=== PATIENT | female | born 1995 | race Caucasian/White ===

== ENCOUNTER 2024-12-18 15:34 | Emergency (ER) | payer BC, OTHER ==
[2024-12-18] MEDS ORDERED: diphenhydrAMINE 50 MG/ML VIAL ONE (16:30)
[2024-12-18] MEDS ORDERED: Metoclopramide HCl 10 MG (2 mL) VIAL ONE (16:30)
[2024-12-18 18:00] LABS: #Basophils Less than 0.03 10x3/uL (0.0-0.2); #Eosinophils Less than 0.03 10x3/uL (0.0-0.5); #Monocytes 1.15 10x3/uL (0.0-1.1); #Neutrophils 6.14 10x3/uL (1.5-8.4); %Basophils 0.1 % (0.0-2.0); %Lymphocytes 15.4 % (18.0-47.0); %Monocytes 13.2 % (0.0-10.0); %Neutrophils 70.5 % (40.0-75.0); Hematocrit 33.4 % (34.9-44.5); Hemoglobin 11.7 g/dL (12.0-15.5); Mean Corpuscular Volume 88.4 fL (81.6-98.3); Mean Platelet Volume 11.7 fL (7.4-10.4); Platelet Count 166 10x3/uL (150-450); RBC Distribution Width 12.8 % (11.5-14.5); Red Blood Cell (RBC) Count 3.78 10x6/uL (3.90-5.03); White Blood Cell (WBC) Count 8.71 10x3/uL (3.5-10.5)
[2024-12-18 18:16] LABS: Bilirubin Neg (Negative); Blood, Urine Negative (Negative); Glucose, Urine (Dipstick) Normal (Negative); Ketone, Urine Negative (Negative); Leukocyte Negative (Negative); Nitrite Negative (Negative); Protein, Urine (Dipstick) 15 mg/dl (Neg-Trace); Urobilinogen Normal mg/dL (Less than 2)
[2024-12-18 18:17] LABS: Clarity Hazy (Clear)
[2024-12-18 18:23] LABS: Bacteria/HPF Rare-Few HPF (None Seen); CAUTI Indications for Culture Pelvic or flank pain; RBC/HPF None Seen HPF (0-3); Squamous Epithelial 0-3 HPF (0-3); Urine Culture Reflex No No; WBC/HPF 0-3 HPF (0-3)
[2024-12-18 18:29] LABS: ALT (SGPT) Less than 7 U/L (Less than 34); AST (SGOT) 16 U/L (11-34); Albumin 3.3 g/dL (3.1-4.5); Alkaline Phosphatase 41 U/L (40-110); Anion Gap 16 mmol/L (10-20); BUN (Urea Nitrogen) 5 mg/dL (7.0-18.7); Bilirubin, Total 0.2 mg/dL (0.3-1.2); Calc. Creatinine Clearance 0 mL/min (70-130); Calcium 8.4 mg/dL (7.8-10.44); Carbon Dioxide 17 mmol/L (22-29); Chloride 107 mmol/L (98-107); Estimated GFR 121; Globulin 2.8 g/dL (2.4-3.5); Glucose 117 mg/dL (70-105); Lipase 20 U/L (8-78); Protein, Total 6.1 g/dL (6.0-8.3); Sodium 136 mmol/L (136-145)
[2024-12-18 18:32] LABS: Troponin I Less than 0.010 ng/mL (< 0.028)
[2024-12-18] MEDS ORDERED: Acetaminophen 325 MG TAB ONE (18:58)
== END 2024-12-18 19:28 | disposition home or self-care (01) ==
LOC: CSHERS 15:34
DX: O98.512 Other viral diseases complicating pregnancy, second trimester (principal); J10.1 Influenza due to other identified influenza virus with other respiratory manifestations; Z3A.15 15 weeks gestation of pregnancy
CPT/HCPCS: 71045; 76815; 80053; 81001; 83690; 84484; 85025; 87428; 93005; J1200; J2765

== ENCOUNTER 2025-06-10 13:26 | Inpatient (IN) | payer OTHER ==
[2025-06-10 18:42] VITALS: BMI 29.8
[2025-06-10] MEDS ORDERED: Carboprost 250 MCG/ML AMP IM PRN (18:58)
[2025-06-10] MEDS ORDERED: Methylergonovine 0.2 MG/ML VIAL IM PRN (18:58)
[2025-06-10] MEDS ORDERED: Lidocaine 1% (PF) 30 ML VIAL SC PRN (18:58)
[2025-06-10] MEDS ORDERED: hydrALAZINE 20 MG/ML VIAL SLOW IVP PRN (18:58)
[2025-06-10] MEDS ORDERED: Tranexamic Acid 1,000 MG/10 ML VIAL IVP PRN (18:58)
[2025-06-10] MEDS ORDERED: Diphenoxylate HCl/Atropine Tablet PO PRN ×2 (18:58)
[2025-06-10] MEDS ORDERED: Oxytocin 30 units/NS 500 ML 500 ML IV SCH (19:00)
[2025-06-10 19:08] LABS: Hematocrit 36.3 % (34.9-44.5); Hemoglobin 12.5 g/dL (12.0-15.5); Mean Corpuscular Hemoglobin 31.3 pg (27.0-33.0); Mean Corpuscular Volume 90.8 fL (81.6-98.3); Platelet Count 199 10x3/uL (150-450); Red Blood Cell (RBC) Count 4.00 10x6/uL (3.90-5.03); White Blood Cell (WBC) Count 9.18 10x3/uL (3.5-10.5)
[2025-06-10] MEDS: fentaNYL/Ropivacaine Epidural 100 ML ONE (19:33)
[2025-06-10] MEDS ORDERED: diphenhydrAMINE 50 MG/ML VIAL IVP PRN (19:34)
[2025-06-10] MEDS ORDERED: Ondansetron PF 4 MG/2 ML Vial IVP PRN (19:34)
[2025-06-10] MEDS ORDERED: Communication Order-Pharmacy FS SCH (19:45)
[2025-06-10] MEDS ORDERED: fentaNYL 2 mcg/Ropivacaine 0.2% Epidural 100 ML CADD EPIDURAL SCH (19:45)
[2025-06-10 20:03] LABS: Syphilis Antibody Index 0.07 S/CO (<1.00 Non-Reactive)
[2025-06-10 20:04] LABS: Hep B Surf Ag - L&D Non-Reactive S/CO (NonReactive)
[2025-06-10] MEDS: Ondansetron PF 4 MG/2 ML Vial IVP PRN (21:22)
[2025-06-10] MEDS: Acetaminophen 325 MG TAB PO PRN (23:12)
[2025-06-11] MEDS: Oxytocin 30 units/NS 500 ML 500 ML IV SCH (00:05)
[2025-06-11 00:10] LABS: Analyzer IN Cardio CS NICU; RapidComm Collect By RN; pH (Cord, venous) 7.426 (7.250-7.350)
[2025-06-11 00:14] LABS: Analyzer IN Cardio CS NICU; RapidComm Collect By RN
[2025-06-11] MEDS: Oxytocin 30 units/NS 500 ML 500 ML ONE (04:13)
[2025-06-11] MEDS: Ibuprofen 800 MG TAB PO SCH (08:39)
[2025-06-12 12:30] VITALS: BP 138/86; TEMP 98.1
== END 2025-06-12 13:20 | disposition home or self-care (01) | DRG 807 ==
LOC: CSHLD/OP 13:26 → CSHLD 16:50 → CSHPP 06-11 02:35
PROVIDERS: ADMIT Obstetrics & Gynecology; ATTEND Obstetrics & Gynecology
PROC: 10E0XZZ Delivery of Products of Conception, External Approach (ICD-10-PCS; principal; 2025-06-10)
PROC: 4A1HXCZ Monitoring of Products of Conception, Cardiac Rate, External Approach (ICD-10-PCS; 2025-06-10)
PROC: 10907ZC Drainage of Amniotic Fluid, Therapeutic from Products of Conception, Via Natural or Artificial Opening (ICD-10-PCS; 2025-06-10)
DX: O76 Abnormality in fetal heart rate and rhythm complicating labor and delivery (principal); Z37.0 Single live birth; O66.0 Obstructed labor due to shoulder dystocia; Z3A.39 39 weeks gestation of pregnancy
CPT/HCPCS: 36415; 51702; 76819; 82805; 85027; 86780; 86850; 86900; 86901; 87340; 99285; J2405; J2590